=== PATIENT | male | born 1980 ===

== ENCOUNTER 2022-03-06 11:04 | Emergency (ER) | payer MEDICAID ==
[2022-03-06] MEDS ORDERED: Sodium Chloride 0.9% 10 ML Syringe FLUSH PRN (11:07)
[2022-03-06] MEDS: LORazepam 2 MG/ML Syringe IVPUSH ONE ×2 (11:24→12:07)
[2022-03-06] MEDS: Sodium Chloride 0.9% 1,000 ML IV ONE (11:26)
[2022-03-06 11:46] LABS: CHLORIDE,CL 103 mEq/L (98-106); ESTIMATED GFR 98 mL/min (>=60); SODIUM,NA 140 mEq/L (136-145)
[2022-03-06] MEDS: Haloperidol Lactate 5 MG/ML SDV IM ONE (12:24)
[2022-03-06 12:25] LABS: AMPHETAMINES,URINE NEGATIVE (NEGATIVE); BARBITURATES,URINE NEGATIVE (NEGATIVE); BENZODIAZEPINE,URINE NEGATIVE (NEGATIVE); MDMA (ECSTASY), URINE NEGATIVE (NEGATIVE); METHADONE,URINE NEGATIVE (NEGATIVE); METHAMPHETAMINES,URINE POSITIVE (NEGATIVE); OPIATES,URINE NEGATIVE (NEGATIVE); OXYCODONE,URINE NEGATIVE (NEGATIVE); PHENCYCLIDINE,URINE NEGATIVE (NEGATIVE); TCA,URINE NEGATIVE (NEGATIVE)
[2022-03-06] MEDS: Ondansetron 4 MG Tab.DIS PO STA (13:01)
[2022-03-06] MEDS: LORazepam 0.5 MG Tab PO ONE (13:01)
[2022-03-06] MEDS: cloNIDine 0.1 MG Tab PO STA (13:01)
== END 2022-03-06 13:25 | disposition home or self-care (01) ==
LOC: CC.ED 11:04
DX: F11.23 Opioid dependence with withdrawal (principal); F15.10 Other stimulant abuse, uncomplicated; Z20.822 Contact with and (suspected) exposure to COVID-19
CPT/HCPCS: 36415; 71045; 80053; 80305-QW; 84484; 85025; 85379; 86140; 93005; 96361; 96372; 96374; 96376; 99284; 99285-25; A9270-GY; J1630; J2060; J7030; U0002